=== PATIENT | male | born 1970 | race Caucasian/White ===

== ENCOUNTER 2017-09-23 19:56 | Emergency (ER) | payer MEDICARE, SELFPAY ==
--- NOTE | 2017-09-23 20:22 | HMH.EDUTC ---
[facility] [place] Disposition Clinical Impression: URI (upper respiratory infection) Qualifiers: URI type: unspecified URI Qualified Code(s): J06.9 - Acute upper respiratory infection, unspecified Disposition: Home, Self-Care Condition on Discharge: Good Instructions: Sore Throat, Sinusitis (Alternative Therapy), Sinusitis, DI for Sinusitis Additional Instructions: * Monitor Temp. Tylenol and/or Ibuprofen as needed. ER if fever is no less than 101 despite alternating Tylenol and Ibuprofen * Encourage fluids, water, Gatorade, powerade, pedialyte if /toddler/or child * Warm salt water gargles for throat irritation *Warm fluids *Sore throat lozenges *Sleep elevated *humidifier or vaporizer Lots of rest Increase fluids, water, Gatorade, powerade *Flonase 2 sprays each nostril daily but may take 2-3 days to notice improvement with it *Bromfed may cause drowsiness. Know how it effect you or your child. Before driving, caring for small children or sending your child to school *Your throat swab was sent to lab for culture. Those results area typically sent to your primary care physician. Be sure to follow up in 2-3 days if no improvement so they can review those results and treat if necessary If you dont have primary care I recommend you get one, but in the mean time you will have to return to a walk in clinic Follow up IMMEDIATELY for new or worsening of symptoms OR no noticeable improvement over the next 48-72 hours. 911 immediately for any life threatening symptoms such as chest pain or difficulty breathing Prescriptions: Dextromethorphan Polistirex [Delsym] 10 ml PO Q12H PRN #200 thad.er.12h PRN Reason: Cough Fluticasone Propionate [Flonase 50mcg nasal spray 16gm] 2 spr NS DAILY #1 bottle Time of Disposition: 20:44 Medical Decision Making - Medical Records Medical records reviewed: Yes: I reviewed the patient's medical records. Vital Signs: 09/23/17 20:23 Temperature 99.2 F Temperature Source Temporal Artery Scan Pulse Rate [Right] 88 Respiratory Rate 20 Blood Pressure [Right Arm] 124/67 Blood Pressure Mean [Right Arm] 86 Blood Pressure Source [Right Arm] Automatic Cuff Blood Pressure Position [Right Arm] Sitting 02 Sat by Pulse Oximetry 98 Oxygen Delivery Method Room Air - Ubaldo Inquiry Pt receiving controlled substance: No Ubaldo was queried for this patient: No [facility] [place] HPI - General Stated complaint: jaime,sore all over Description of Symptoms (Recalled from Triage Doc. by RN): flu like symptoms,body aches, nasal congestion, cough and sore throat - History of Present Illness Provider Complaint: Patient state that he has a job interview tomorrow and he was worried that he may have the flu States that he has been having sore throat, sinus pain and pressure along with cough and body aches and flu like symptoms States that for last couple of days he hasn't been able to breath out of his nose because it is so stopped up State that he is feeling pressure under his eyes and thinks he may have a sinus infection too - Related Data Previous Rx's Medication Instructions Recorded Dextromethorphan Polistirex 10 ml PO Q12H PRN #200 thad.er.12h 09/23/17 [Delsym] Fluticasone Propionate [Flonase 2 spr NS DAILY #1 bottle 09/23/17 50mcg nasal spray 16gm] Allergies Allergy/AdvReac Type Severity Reaction Status Date / Time No Known Allergies Allergy Verified 09/23/17 20:27 [facility] History I have reviewed the patient's past medical history: Yes ROS Obtained: Yes All systems reviewed & no additional complaints - Constitutional Constitutional: Reports body ache, Reports chills, Reports fever(s) - ENT Ears, Nose, Mouth, and Throat: Reports sinus pain, Reports sinus pressure, Reports sore throat Physical Exam - General General appearance: alert, in no apparent distress - Expanded ENT Exam Nose exam: Present: sinus tenderness, other (Tenderness with palpation maxillary sinus, reports pressure feeling in teeth also
[2017-09-23 20:23] VITALS: BP 124/67; PULSE 88; RESP 20; TEMP 37.3; O2SAT 98; BMI 29.2
--- NOTE | 2017-09-23 20:27 | ED_ITS ---
[facility] [place] Disposition Clinical Impression: URI (upper respiratory infection) Qualifiers: URI type: unspecified URI Qualified Code(s): J06.9 - Acute upper respiratory infection, unspecified Disposition: Home, Self-Care Condition on Discharge: Good Instructions: Sore Throat, Sinusitis (Alternative Therapy), Sinusitis, DI for Sinusitis Additional Instructions: * Monitor Temp. Tylenol and/or Ibuprofen as needed. ER if fever is no less than 101 despite alternating Tylenol and Ibuprofen * Encourage fluids, water, Gatorade, powerade, pedialyte if /toddler/or child * Warm salt water gargles for throat irritation *Warm fluids *Sore throat lozenges *Sleep elevated *humidifier or vaporizer Lots of rest Increase fluids, water, Gatorade, powerade *Flonase 2 sprays each nostril daily but may take 2-3 days to notice improvement with it *Bromfed may cause drowsiness. Know how it effect you or your child. Before driving, caring for small children or sending your child to school *Your throat swab was sent to lab for culture. Those results area typically sent to your primary care physician. Be sure to follow up in 2-3 days if no improvement so they can review those results and treat if necessary If you don? t have primary care I recommend you get one, but in the mean time you will have to return to a walk in clinic Follow up IMMEDIATELY for new or worsening of symptoms OR no noticeable improvement over the next 48-72 hours. 911 immediately for any life threatening symptoms such as chest pain or difficulty breathing Prescriptions: Dextromethorphan Polistirex [Delsym] 10 ml PO Q12H PRN #200 thad.er.12h PRN Reason: Cough Fluticasone Propionate [Flonase 50mcg nasal spray 16gm] 2 spr NS DAILY #1 bottle Time of Disposition: 20:44 Medical Decision Making - Medical Records Medical records reviewed: Yes: I reviewed the patient's medical records. Vital Signs: 09/23/17 20:23 Temperature 99.2 F Temperature Source Temporal Artery Scan Pulse Rate [Right] 88 Respiratory Rate 20 Blood Pressure [Right Arm] 124/67 Blood Pressure Mean [Right Arm] 86 Blood Pressure Source [Right Arm] Automatic Cuff Blood Pressure Position [Right Arm] Sitting 02 Sat by Pulse Oximetry 98 Oxygen Delivery Method Room Air - Ubaldo Inquiry Pt receiving controlled substance: No Ubaldo was queried for this patient: No [facility] [place] HPI - General Stated complaint: jaime,sore all over Description of Symptoms (Recalled from Triage Doc. by RN): flu like symptoms, body aches, nasal congestion, cough and sore throat - History of Present Illness Provider Complaint: Patient state that he has a job interview tomorrow and he was worried that he may have the flu States that he has been having sore throat , sinus pain and pressure along with cough and body aches and flu like symptoms States that for last couple of days he hasn't been able to breath out of his nose because it is so stopped up State that he is feeling pressure under his eyes and thinks he may have a sinus infection too - Related Data Previous Rx's Medication Instructions Recorded Dextromethorphan Polistirex 10 ml PO Q12H PRN #200 thad.er.12h 09/23/17 [Delsym] Fluticasone Propionate [Flonase 2 spr NS DAILY #1 bottle 09/23/17 50mcg nasal spray 16gm] Allergies Allergy/AdvReac Type Severity Reaction Status Date / Time No Known Allergies Allergy Verified 09/23/17 20:27
[2017-09-23 20:48] VITALS: BP 122/88; PULSE 88; RESP 18; TEMP 37.2
[2017-09-23 21:01] LABS: UTC Influenza A Antigen Negative (Negative); UTC Influenza B Antigen Negative (Negative)
== END 2017-09-23 20:50 | disposition home or self-care (01) ==
PROVIDERS: Emergency Provider Nurse Practitioner
DX: J06.9 Acute upper respiratory infection, unspecified (principal)
CPT/HCPCS: 87804; 96372; 99201